=== PATIENT | male | born 1935 | race Caucasian/White ===

== ENCOUNTER → 2016-06-15 | Outpatient (CLI) | payer MEDICARE, BC ==
[~2016-06-15] MED LIST: ACETAMINOPHEN PO; ASPIRIN81 M2 PO; ASPIRINEC PO; COLACE PO; COUMADIN PO; COUMADIN5 MG PO; COUMADIN7.5 MG PO; LISINOPRIL PO; LISINOPRIL10 MG PO; LOPRESSOR PO; METOPROLOL SUCC25 MG PO; MILK OF MAGNESIA PO; PERCOCET5/325 PO; SIMVASTATIN20 MG PO; TOPROL XL PO; ZOCOR PO
--- NOTE | ~2016-06-15 | US37 ---
[facility] A Service of [facility] & [facility] RADIOLOGY TEXT RESULTS PATIENT: MALA LEE LOCATION: CNIV : 34 UNIT #: [id number] AGE: [address]: MARA LOWERY APRN SEX: M ORDER DR: [id number] [facility] [address] [place], [place] [address] [id number] O MR#: [id number] Acc #: [id number] NAME: MALA LEE. : 1935 SEX: M STUDY DATE/TIME: 06/15/2016 14:22 UNIT: CNIV ROOM: STUDY DESCRIPTION: US Carotid W/Doppler Bilateral Attending Physician: Mara Lowery Aprn Referring Physician: Mara Lowery Aprn Ordering Physician: Mara Lowery Aprn Primary Care Physician: Tirso Little M.D. MEDICAL IMAGING REPORT This report is preliminary unless electronic signature is present EXAM Bilateral carotid duplex 06/15/2016 HISTORY Carotid bruit. History of bilateral carotid endarterectomy. FINDINGS Duplex imaging of the carotid arteries was performed. The right common carotid artery is patent. Right internal and external carotid arteries are patent post endarterectomy with no plaque. Velocity in the right common carotid is 124, internal is 79, and external is 75 cm/sec. Right ICA/CCA Ratio is 75. On the left side plaque is seen in the proximal and mid common carotid artery. Internal and external carotid arteries are patent with no plaque. Velocity in the left common carotid is 101, internal is 80 and external is 110 cm/sec. Left ICA/CCA Ratio is 0.9. Antegrade flow is seen in the right and left vertebral arteries. IMPRESSION Normal appearance of the right and left internal and external carotid arteries post endarterectomy. Antegrade flow is seen in the right and left vertebral arteries. Dictated by... Femi Gray M.D. THIS IS AN ELECTRONICALLY VERIFIED REPORT Femi Gray M.D. at 06/16/2016 9:44 AM Erlinda [facility] A Service of [facility] & [facility] RADIOLOGY TEXT RESULTS PATIENT: MALA LEE LOCATION: [facility] : 34 UNIT #: [id number] AGE: [address]: MARA LOWERY APRN SEX: M ORDER DR: TD: 06/15/2016 18:01 JOB #: [id number] MEDICAL IMAGING REPORT Page 1 of 1 COPY
== END | disposition home or self-care (01) ==
LOC: CNIV 13:55
DX: R09.89 Other specified symptoms and signs involving the circulatory and respiratory systems (principal); Z98.890 Other specified postprocedural states
CPT/HCPCS: 93880